=== PATIENT | male | born 1965 | race Two or more races ===

== ENCOUNTER 2024-05-07 15:39 | Inpatient (IN) | payer OTHER ==
[~2024-05-07 15:39] MED LIST: HEPARIN SODIUM,PORCINE 1,000 UNITS/ML VIAL IVP ONE
[2024-05-07 16:36] LABS: BASOPHILS % (AUTO) 0.9 % (0.0-2.0); EOSINOPHILS % (AUTO) 3.4 % (1.0-6.0); LYMPHOCYTES # (AUTO) 1.1 K/uL (1.0-4.8); LYMPHOCYTES % (AUTO) 18.4 % (22.0-44.0); MEAN CORPUSCULAR HEMOGLOBIN 31.7 pg (26.0-34.0); MEAN CORPUSCULAR HGB CONC 33.4 G/dL (31.0-37.0); MEAN CORPUSCULAR VOLUME 95 fL (80-100); MONOCYTES # (AUTO) 0.5 K/uL (0.1-1.0); MONOCYTES % (AUTO) 7.8 % (2.0-9.0); NEUTROPHILS % (AUTO) 69.5 % (40.0-70.0); PLATELET COUNT (AUTO) 209 K/uL (150-450); RED BLOOD CELL COUNT(AUTO) 4.11 MIL/uL (4.50-5.90); RED CELL DISTRIBUTION WIDTH 14.9 % (11.5-14.5); WHITE BLOOD COUNT (AUTO) 5.8 K/uL (4.5-11.0)
[2024-05-07 16:44] LABS: CALCIUM, TOTAL 8.9 mg/dL (8.8-10.5); CREATININE 2.33 mg/dL (0.60-1.30); POTASSIUM 3.8 mmol/L (3.5-5.1)
[2024-05-07 16:50] LABS: ALBUMIN 3.3 g/dL (3.4-5.0); BILIRUBIN,TOTAL 0.2 mg/dL (0.1-1.0); TOTAL PROTEIN, SERUM 7.5 g/dL (6.4-8.2)
[2024-05-07 17:20] LABS: TROPONIN I-HIGH SENSITIVITY 14 ng/L (<76)
[2024-05-07] MEDS ORDERED: DAPA10TA7 PO (17:38)
[2024-05-07] MEDS ORDERED: METO25XL PO (17:38)
[2024-05-07] MEDS ORDERED: ATOR40TA28 PO (17:38)
[2024-05-07] MEDS ORDERED: FURO40 PO (17:38)
[2024-05-07] MEDS ORDERED: INSLAN SQ (17:38)
[2024-05-07] MEDS ORDERED: ERGO500054 PO (17:38)
[2024-05-07] MEDS ORDERED: DOCU-385 PO (17:38)
[2024-05-07] MEDS ORDERED: ASPI-1450 PO (17:38)
[2024-05-07] MEDS ORDERED: ONDANSETRON HCL 4 MG/2 ML VIAL IVP PRN (19:00)
[2024-05-07] MEDS: ATORVASTATIN CALCIUM 40 MG TABLET PO SCH (21:54)
[2024-05-07] MEDS: INSULIN GLARGINE,HUM.REC.ANLOG 100 UNITS/ML SQ SCH (21:55)
[2024-05-07] MEDS: METOPROLOL SUCCINATE 25 MG ER TABLET PO SCH (21:58)
[2024-05-07] MEDS ORDERED: INSULIN LISPRO 100 UNITS/ML SQ PRN (22:15)
[2024-05-07] MEDS ORDERED: DEXTROSE 50%-WATER 25 GM/50 ML SYRINGE IVP PRN (22:15)
[2024-05-07 23:20] VITALS: BP 160/72; PULSE 62; RESP 18
[2024-05-07 23:25] VITALS: BP_SYST 164; BP_DIAS 130; BP_DIAS 69; PULSE 61; RESP 18
[2024-05-07 23:55] VITALS: BP 129/78; PULSE 61; RESP 16
[2024-05-08] MEDS: HEPARIN SODIUM,PORCINE 5,000 UNITS/ML VIAL SQ SCH
[2024-05-08 00:25] VITALS: BP 104/63; PULSE 60; RESP 16
[2024-05-08 00:55] VITALS: BP 103/63; PULSE 60; RESP 16
[2024-05-08 01:09] VITALS: BP 162/96; PULSE 68; RESP 16
[2024-05-08 01:35] VITALS: BP 165/81; PULSE 65; RESP 18; TEMP 98
[2024-05-08] MEDS: LOPERAMIDE HCL 2 MG CAPSULE PO ONE (04:36)
[2024-05-08 06:50] LABS: GLUCOMETER DEV NAME(LOC) 6S.2; GLUCOSE,POINT OF CARE 104 MG/DL (70-110)
[2024-05-08 07:26] VITALS: BP 169/77; PULSE 58; RESP 18; TEMP 97.9
[2024-05-08 07:27] LABS: BASOPHILS % (AUTO) 0.7 % (0.0-2.0); EOSINOPHILS % (AUTO) 3.5 % (1.0-6.0); HEMATOCRIT 39.2 % (41-53); HEMOGLOBIN 13.2 g/dL (13.5-17.5); LYMPHOCYTES # (AUTO) 1.2 K/uL (1.0-4.8); LYMPHOCYTES % (AUTO) 17.9 % (22.0-44.0); MEAN CORPUSCULAR HEMOGLOBIN 31.5 pg (26.0-34.0); MEAN CORPUSCULAR HGB CONC 33.7 G/dL (31.0-37.0); MEAN CORPUSCULAR VOLUME 94 fL (80-100); MONOCYTES # (AUTO) 0.5 K/uL (0.1-1.0); MONOCYTES % (AUTO) 7.1 % (2.0-9.0); NEUTROPHILS # (AUTO) 4.9 K/uL (1.8-7.7); NEUTROPHILS % (AUTO) 70.8 % (40.0-70.0); PLATELET COUNT (AUTO) 195 K/uL (150-450); RED CELL DISTRIBUTION WIDTH 14.4 % (11.5-14.5); WHITE BLOOD COUNT (AUTO) 6.9 K/uL (4.5-11.0)
[2024-05-08 07:41] LABS: CALCIUM, TOTAL 8.9 mg/dL (8.8-10.5); CREATININE 1.78 mg/dL (0.60-1.30); MAGNESIUM 2.3 mg/dL (1.80-2.40); POTASSIUM 3.6 mmol/L (3.5-5.1)
[2024-05-08] MEDS: FUROSEMIDE 40 MG TABLET PO SCH (08:10)
[2024-05-08] MEDS: ASPIRIN 81 MG CHEWABLE TABLET PO SCH (08:10)
[2024-05-08] MEDS: DOCUSATE SODIUM 100 MG CAPSULE PO SCH (08:10)
[2024-05-08 08:37] LABS: C.DIFF GDH ANTIGEN, Stool Negative (Negative); C.DIFF TOXINS A&B, Stool Negative (Negative)
[2024-05-08 12:56] LABS: GLUCOMETER DEV NAME(LOC) 6S.2; GLUCOSE,POINT OF CARE 132 MG/DL (70-110)
[2024-05-14] MEDS ORDERED: ERGOCALCIFEROL (VIT D2) 50,000 UNITS [1,250 MCG] CAPSULE PO SCH (09:00)
== END 2024-05-08 19:30 | DRG 682 ==
LOC: EMS 17:58 → EDH 20:24 → 6S 23:47
PROVIDERS: ADMIT Internal Medicine; ATTEND Internal Medicine
PROC: 5A1D70Z Performance of Urinary Filtration, Intermittent, Less than 6 Hours Per Day (ICD-10-PCS; principal; 2024-05-07)
DX: I12.0 Hypertensive chronic kidney disease with stage 5 chronic kidney disease or end stage renal disease (principal); N18.6 End stage renal disease; E11.65 Type 2 diabetes mellitus with hyperglycemia; E78.00 Pure hypercholesterolemia, unspecified; E11.22 Type 2 diabetes mellitus with diabetic chronic kidney disease; Z99.2 Dependence on renal dialysis; Z79.4 Long term (current) use of insulin; Z79.82 Long term (current) use of aspirin; Z79.899 Other long term (current) drug therapy; Z83.3 Family history of diabetes mellitus
CPT/HCPCS: 80048; 80053; 82962; 83735; 84484; 85025; 87081; 87324; 87340; 87449; 90935; 93005; 96372; 99285; J1644; J1815